=== PATIENT | female | born 1960 | race Caucasian/White ===

== ENCOUNTER 2017-07-26 20:13 | Observation (INO) | payer BC ==
[2017-07-26] MEDS ORDERED: Aspirin 81 MG Tab.Chew PO ONE (20:31)
--- NOTE | 2017-07-26 20:32 | EDM.PDOC ---
ED HPI GENERAL MEDICAL PROBLEM - General Chief Complaint: Chest Pain Stated Complaint: PT HAS CHEST PAINS Time Seen by Provider: 07/26/17 20:32 Source of Information: Reports: Patient - History of Present Illness INITIAL COMMENTS - FREE TEXT/NARRATIVE: HISTORY AND PHYSICAL: History of present illness: [Patient has been having some low-grade back pain over the last 24 hours to out of 10 yesterday improving somewhat yesterday evening today she developed 8 out of 10 chest tightness with a period of diaphoresis this lasted for approximately 20-30 minutes per patient and then improved she presents to the emergency room with recurring pain she describes as chest tightness to the left shoulder no diaphoresis at current no radiation into the arm neck or jaw No shortness of breath No fever nausea vomiting chills sweats no headache dizziness or palpitation no bowel or urine symptoms ] sugar receive 2 doses of nitroglycerin here in the emergency room with resolution of pain currently 0 out of 10 Review of systems: As per history of present illness and below otherwise all systems reviewed and negative. Past medical history: As per history of present illness and as reviewed below otherwise noncontributory. Surgical history: As per history of present illness and as reviewed below otherwise noncontributory. Social history: No reported history of drug or alcohol abuse. Family history: As per history of present illness and as reviewed below otherwise noncontributory. Physical exam: HEENT: Atraumatic, normocephalic, pupils reactive, negative for conjunctival pallor or scleral icterus, mucous membranes moist, throat clear, neck supple, nontender, trachea midline. Lungs: Clear to auscultation, breath sounds equal bilaterally, chest nontender. Heart: S1S2, regular, negative for clicks, rubs, or JVD. Abdomen: Soft, nondistended, nontender. Negative for masses or hepatosplenomegaly. Negative for costovertebral tenderness. Pelvis: Stable nontender. Genitourinary: Deferred. Rectal: Deferred. Extremities: Atraumatic, negative for cords or calf pain. Neurovascular unremarkable. Neuro: Awake, alert, oriented. Cranial nerves II through XII unremarkable. Cerebellum unremarkable. Motor and sensory unremarkable throughout. Exam nonfocal. Diagnostics: [CBC CMP UA troponin lipase EKG Chest 1 view ] Therapeutics: Aspirin 324 mg chewable Nitroglycerin sublingual 0.4 Morphine 2 mg IV Normal saline bolus Impression [Chest pain] Definitive disposition and diagnosis as appropriate pending reevaluation and review of above. 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: Musculoskeletal History: Reports: None Neurological History: Reports: None Psychiatric History: Reports: None Endocrine/Metabolic History: Reports: None Hematologic History: Reports: None Immunologic History: Reports: None Oncologic (Cancer) History: Reports: None Dermatologic History: Reports: None - Past Surgical History Female Surgical History: Reports: Section Musculoskeletal Surgical History: Reports: Carpal Tunnel - History Comment History Comment: etoh "1x a week" Social & Family History - Tobacco Use Smoking Status *Q: Never Smoker - Recreational Drug Use Recreational Drug Use: No Drug Use in Last 12 Months: No ED ROS GENERAL - Review of Systems Review Of Systems: ROS reveals no pertinent complaints other than HPI. ED EXAM, GENERAL - Physical Exam Exam: See Below Course - Vital Signs Last Recorded V/S: Last Vital Signs Temp 98.5 F 07/26/17 20:25 Pulse 63 07/26/17 21:58 Resp 18 07/26/17 21:58 BP 79/45 L 07/26/17 21:58 Pulse Ox 97 07/26/17 21:58 - Orders/Labs/Meds Orders: Active Orders 24 hr Category Date Time Status EKG 12 Lead [EKG Documentation Completion] [RC] STAT Care 07/26/17 20:25 Active EKG Documentation Completion [RC] STAT Care 07/26/17 20:31 Active Chest 1V Frontal [CR] Stat Exams 07/26/17 20:31 Taken UA W/MICROSCOPIC [URIN] Stat Lab 07/26/17 20:05 Ordered Nitroglycerin [Nitrostat] Med 07/26/17 21:24 Active 0.4 mg SL Q5M PRN Sodium Chloride 0.9% [Normal Saline] 1,000 ml Med 07/26/17 21:24 Active IV STAT Medication Orders Sodium Chloride (Normal Saline) 1,000 mls @ 999 mls/hr IV STAT ONE Stop: 07/26/17 22:24 Last Admin: 07/26/17 21:40 Dose: 999 mls/hr Nitroglycerin (Nitrostat) 0.4 mg SL Q5M PRN PRN Reason: Chest Pain Last Admin: 07/26/17 21:50 Dose: 0.4 mg Admin: 07/26/17 21:43 Dose: 0.4 mg Labs: Laboratory Tests 07/26/17 07/26/17 07/26/17 Range/Units 19:45 19:45 20:05 WBC 8.37 (4.0-11.0) K/uL RBC 4.32 (4.30-5.90) M/uL Hgb 13.8 (12.0-16.0) g/dL Hct 39.4 (36.0-46.0) % MCV 91.2 (80.0-98.0) fL MCH 31.9 (27.0-32.0) pg MCHC 35.0 (31.0-37.0) g/dL RDW Std Deviation 42.1 (28.0-62.0) fl RDW Coeff of Iesha 13 (11.0-15.0) % Plt Count 298 (150-400) K/uL MPV 8.60 (7.40-12.00) fL Neut % (Auto) 55.6 (48.0-80.0) % Lymph % (Auto) 34.8 (16.0-40.0) % [place] % (Auto) 8.6 (0.0-15.0) % Eos % (Auto) 0.6 (0.0-7.0) % Baso % (Auto) 0.4 (0.0-1.5) % Neut # (Auto) 4.7 (1.4-5.7) K/uL Lymph # (Auto) 2.9 H (0.6-2.4) K/uL [place] # (Auto) 0.7 (0.0-0.8) K/uL Eos # (Auto) 0.1 (0.0-0.7) K/uL Baso # (Auto) 0.0 (0.0-0.1) K/uL Nucleated RBC % 0.0 /100WBC Nucleated RBCs # 0 K/uL Sodium 137 (136-145) mmol/L Potassium 3.6 (3.5-5.1) mmol/L Chloride 101 (98-107) mmol/L Carbon Dioxide 29.8 (21.0-32.0) mmol/L BUN 16 (7.0-18.0) mg/dL Creatinine 0.7 (0.6-1.0) mg/dL Est Cr Clr Drug Dosing 74.23 mL/min Estimated GFR (MDRD) > 60.0 ml/min Glucose 121 H (74-106) mg/dL Calcium 9.2 (8.5-10.1) mg/dL Total Bilirubin 0.4 (0.2-1.0) mg/dL AST 18 (15-37) IU/L ALT 24 (14-63) IU/L Alkaline Phosphatase 66 (46-116) U/L Troponin I < 0.050 (0.000-0.056) ng/mL Total Protein 7.0 (6.4-8.2) g/dL Albumin 3.8 (3.4-5.0) g/dL Globulin 3.2 (2.0-3.5) g/dL Albumin/Globulin Ratio 1.2 L (1.3-2.8) Lipase 195 (73-393) U/L Urine Color YELLOW Urine Appearance CLEAR Urine pH 5.5 (5.0-8.0) Ur Specific [place] 1.020 (1.001-1.035) Urine Protein NEGATIVE (NEGATIVE) mg/dL Urine Glucose (UA) NEGATIVE (NEGATIVE) mg/dL Urine Ketones NEGATIVE (NEGATIVE) mg/dL Urine Occult Blood NEGATIVE (NEGATIVE) Urine Nitrite NEGATIVE (NEGATIVE) Urine Bilirubin NEGATIVE (NEGATIVE) Urine Urobilinogen 0.2 (<2.0) EU/dL Ur Leukocyte Esterase NEGATIVE (NEGATIVE) Urine RBC 0-1 (0-2/HPF) Urine WBC 1-3 (0-5/HPF) Ur Epithelial Cells OCCASIONAL (NONE-FEW) Urine Bacteria RARE (NEGATIVE) Meds: Medications Generic Name Dose Route Start Last Admin Trade Name Freq PRN Reason Stop Dose Admin Sodium Chloride 1,000 mls @ 999 mls/hr 07/26/17 21:24 07/26/17 21:40 Normal Saline IV 07/26/17 22:24 999 mls/hr STAT ONE Administration Nitroglycerin 0.4 mg 07/26/17 21:24 07/26/17 21:50 Nitrostat SL 0.4 mg Q5M PRN Administration Chest Pain Discontinued Medications Generic Name Dose Route Start Last Admin Trade Name Derrickq PRN Reason Stop Dose Admin Aspirin 324 mg 07/26/17 20:31 07/26/17 20:41 Aspirin PO 07/26/17 20:32 324 mg ONETIME ONE Administration Morphine Sulfate 2 mg 07/26/17 21:24 07/26/17 21:45 Morphine IVPUSH 07/26/17 21:25 2 mg ONETIME ONE Administration Nitroglycerin Confirm 07/26/17 21:33 07/26/17 21:43 Nitrostat Administered 07/26/17 21:34 Not Given Dose 0.4 mg .ROUTE .STK-MED ONE Departure - Departure Time of Disposition: 22:10 Disposition: Refer to Observation Condition: Fair Clinical Impression: Atypical chest pain - Discharge Information Referrals: PCP,None [Primary Care Provider] - Forms: ED Department Discharge - My Orders Last 24 Hours: My Active Orders 07/26/17 20:05 UA W/MICROSCOPIC [URIN] Stat 07/26/17 20:25 EKG 12 Lead [EKG Documentation Completion] [RC] STAT 07/26/17 20:31 EKG Documentation Completion [RC] STAT Chest 1V Frontal [CR] Stat 07/26/17 21:24 Nitroglycerin [Nitrostat] 0.4 mg SL Q5M PRN Sodium Chloride 0.9% [Normal Saline] 1,000 ml IV STAT - Assessment/Plan Last 24 Hours: My Active Orders 07/26/17 20:05 UA W/MICROSCOPIC [URIN] Stat 07/26/17 20:25 EKG 12 Lead [EKG Documentation Completion] [RC] STAT 07/26/17 20:31 EKG Documentation Completion [RC] STAT Chest 1V Frontal [CR] Stat 07/26/17 21:24 Nitroglycerin [Nitrostat] 0.4 mg SL Q5M PRN Sodium Chloride 0.9% [Normal Saline] 1,000 ml IV STAT
[2017-07-26 21:23] LABS: CHLORIDE,CL 101 mmol/L (98-107); SODIUM,NA 137 mmol/L (136-145)
[2017-07-26] MEDS ORDERED: Morphine 4 MG/ML Syringe IVPUSH ONE (21:24)
[2017-07-26] MEDS ORDERED: Sodium Chloride 0.9% 1,000 ML IV ONE (21:24)
[2017-07-26] MEDS ORDERED: Nitroglycerin 0.4 MG Tab.SL ONE (21:33)
[2017-07-26] MEDS: Nitroglycerin 0.4 MG Tab.SL SL PRN ×2 (21:43→21:50)
[2017-07-26] MEDS ORDERED: Morphine 4 MG/ML Syringe IVPUSH PRN (22:57)
[2017-07-26] MEDS ORDERED: Acetaminophen 325 MG Tab PO PRN (22:59)
[2017-07-27 08:33] VITALS: BP 121/73
[2017-07-27] MEDS ORDERED: Hydrochlorothiazide 25 MG Tab PO SCH (09:00)
[2017-07-27] MEDS ORDERED: Lisinopril 10 MG Tab PO SCH (09:00)
--- NOTE | 2017-07-27 09:29 | PCM.HP ---
H&P History of Present Illness - General Date of Service: 07/27/17 Admit Problem/Dx: Admission Diagnosis/Problem Admission Diagnosis/Problem Atypical chest pain Source of Information: Patient - History of Present Illness Initial Comments - Free Text/Narative: 56-year-old patient was admitted for observation for an ACS rule out. She states that she developed chest pain which she actually thinks his muscle spasms radiating from her back around the lateral aspect of her chest. Patient is on hypertensive medication lisinopril hydrochlorothiazide combination at a low dose. She does not have a history of chest pain, patient believes that this is actually musculoskeletal pain that is not improving. Patient states that she was taking care of her grandchild on Tuesday and had him for an extended period time and [employer] in her left arm and was feeding him in an awkward position throughout this time which resulted in increasing soreness that continued onto Tuesday, and by Tuesday she was having significant muscle spasms that brought her into the ER. Discharge Summary Date of admission: 07/27/2017 Date of discharge: 07/27/2017 Admitting diagnosis: #1. Anterior chest pain rule out ACS #2. #3. #4. #5. Discharge diagnoses: #1. Chest pain resolved, likely etiology was musculoskeletal pain/spasms; troponins negative 3 #2. Past medical history of hypertension #3. #4. #5. Consultations: None Procedures: None Hospitalization course: Patient was admitted for ACS rule out, she had troponins drawn that was negative 3. She stated that she was having muscle spasms, and when assessed in the a.m. after given a 5 mg immediate release dose of Flexeril the patient's musculoskeletal spasms had stopped. Patient at night did not have any chest pain that appeared to be ischemic in nature. She was afebrile, laboratories were all within normal limits. She was then subsequently discharged with instructions to follow-up with her PCP, patient was given a prescription for Flexeril 5 mg 3 times a day, as well as ibuprofen. Disposition on discharge: Home Condition on discharge: Stable Discharge medications: Continuation of home medication, Flexeril 5 mg 3 times a day, ibuprofen [id number] Follow-up instructions: Follow-up with PCP Onset of Symptoms: Reports: Sudden chest pain Pain Score (Numeric/FACES): 8 - Related Data Allergies/Adverse Reactions: Allergies Allergy/AdvReac Type Severity Reaction Status Date / Time No Known Allergies Allergy Verified 07/26/17 20:31 Home Medications: Home Meds Hydrochlorothiazide 1 tab PO DAILY 07/26/17 [History] Lisinopril 10 mg PO DAILY 07/26/17 [History] Cyclobenzaprine HCl 5 mg PO TID PRN 5 Days #15 tablet 07/27/17 [Rx] Past Medical History HEENT History: Reports: None Other HEENT History: wears glasses Cardiovascular History: Reports: None Respiratory History: Reports: None Gastrointestinal History: Reports: Colon Polyp Genitourinary History: Reports: None [employer] PROVIDER History: Reports: Musculoskeletal History: Reports: None Neurological History: Reports: None Psychiatric History: Reports: None Endocrine/Metabolic History: Reports: None Hematologic History: Reports: None Immunologic History: Reports: None Oncologic (Cancer) History: Reports: None Dermatologic History: Reports: None - Infectious Disease History Infectious Disease History: Reports: None - Past Surgical History Head Surgeries/Procedures: Reports: None Female Surgical History: Reports: Section Musculoskeletal Surgical History: Reports: Carpal Tunnel - History Comment History Comment: etoh "1x a week" Social & Family History - Family History Family Medical History: Noncontributory HEENT: Reports: None Cardiac: Reports: None Respiratory: Reports: None : Reports: None OBGYN: Reports: None Endocrine/Metabolic: Reports: None - Tobacco Use Smoking Status *Q: Never Smoker Second Hand Smoke Exposure: No - Caffeine Use Caffeine Use: Reports: Coffee - Alcohol Use Date of Last Drink: 07/23/17 Time of Last Drink: 20:00 - Recreational Drug Use Recreational Drug Use: No Drug Use in Last 12 Months: No H&P Review of Systems - Review of Systems: Review Of Systems: ROS reveals no pertinent complaints other than HPI. Exam - Exam Exam: See Below - Vital Signs Vital Signs: Last Vital Signs Temp 36.8 C 07/27/17 08:00 Pulse 85 07/27/17 08:00 Resp 16 07/27/17 08:00 BP 121/73 07/27/17 08:00 Pulse Ox 99 07/27/17 08:00 Weight: 70.352 kg - Exam General: Alert, Oriented, Cooperative, Mild Distress HEENT: Conjunctiva Clear Neck: Supple Lungs: Clear to Auscultation, Normal Respiratory Effort Cardiovascular: Regular Rate, Regular Rhythm GI/Abdominal Exam: Normal Bowel Sounds, Soft, Non-Tender, No Organomegaly Back Exam: Normal Inspection Extremities: Normal Inspection, Normal Range of Motion, Non-Tender, No Pedal Edema - Patient Data Lab Results Last 24 hrs: Laboratory Results - last 24 hr 07/26/17 07/26/17 07/26/17 Range/Units 19:45 19:45 20:05 WBC 8.37 (4.0-11.0) K/uL RBC 4.32 (4.30-5.90) M/uL Hgb 13.8 (12.0-16.0) g/dL Hct 39.4 (36.0-46.0) % MCV 91.2 (80.0-98.0) fL MCH 31.9 (27.0-32.0) pg MCHC 35.0 (31.0-37.0) g/dL RDW Std Deviation 42.1 (28.0-62.0) fl RDW Coeff of Iesha 13 (11.0-15.0) % Plt Count 298 (150-400) K/uL MPV 8.60 (7.40-12.00) fL Neut % (Auto) 55.6 (48.0-80.0) % Lymph % (Auto) 34.8 (16.0-40.0) % [place] % (Auto) 8.6 (0.0-15.0) % Eos % (Auto) 0.6 (0.0-7.0) % Baso % (Auto) 0.4 (0.0-1.5) % Neut # (Auto) 4.7 (1.4-5.7) K/uL Lymph # (Auto) 2.9 H (0.6-2.4) K/uL [place] # (Auto) 0.7 (0.0-0.8) K/uL Eos # (Auto) 0.1 (0.0-0.7) K/uL Baso # (Auto) 0.0 (0.0-0.1) K/uL Nucleated RBC % 0.0 /100WBC Nucleated RBCs # 0 K/uL Sodium 137 (136-145) mmol/L Potassium 3.6 (3.5-5.1) mmol/L Chloride 101 (98-107) mmol/L Carbon Dioxide 29.8 (21.0-32.0) mmol/L BUN 16 (7.0-18.0) mg/dL Creatinine 0.7 (0.6-1.0) mg/dL Est Cr Clr Drug Dosing 74.23 mL/min Estimated GFR (MDRD) > 60.0 ml/min Glucose 121 H (74-106) mg/dL Calcium 9.2 (8.5-10.1) mg/dL Total Bilirubin 0.4 (0.2-1.0) mg/dL AST 18 (15-37) IU/L ALT 24 (14-63) IU/L Alkaline Phosphatase 66 (46-116) U/L Troponin I < 0.050 (0.000-0.056) ng/mL Total Protein 7.0 (6.4-8.2) g/dL Albumin 3.8 (3.4-5.0) g/dL Globulin 3.2 (2.0-3.5) g/dL Albumin/Globulin Ratio 1.2 L (1.3-2.8) Lipase 195 (73-393) U/L Urine Color YELLOW Urine Appearance CLEAR Urine pH 5.5 (5.0-8.0) Ur Specific [place] 1.020 (1.001-1.035) Urine Protein NEGATIVE (NEGATIVE) mg/dL Urine Glucose (UA) NEGATIVE (NEGATIVE) mg/dL Urine Ketones NEGATIVE (NEGATIVE) mg/dL Urine Occult Blood NEGATIVE (NEGATIVE) Urine Nitrite NEGATIVE (NEGATIVE) Urine Bilirubin NEGATIVE (NEGATIVE) Urine Urobilinogen 0.2 (<2.0) EU/dL Ur Leukocyte Esterase NEGATIVE (NEGATIVE) Urine RBC 0-1 (0-2/HPF) Urine WBC 1-3 (0-5/HPF) Ur Epithelial Cells OCCASIONAL (NONE-FEW) Urine Bacteria RARE (NEGATIVE) 07/27/17 07/27/17 Range/Units 01:50 07:43 WBC (4.0-11.0) K/uL RBC (4.30-5.90) M/uL Hgb (12.0-16.0) g/dL Hct (36.0-46.0) % MCV (80.0-98.0) fL MCH (27.0-32.0) pg MCHC (31.0-37.0) g/dL RDW Std Deviation (28.0-62.0) fl RDW Coeff of Iesha (11.0-15.0) % Plt Count (150-400) K/uL MPV (7.40-12.00) fL Neut % (Auto) (48.0-80.0) % Lymph % (Auto) (16.0-40.0) % [place] % (Auto) (0.0-15.0) % Eos % (Auto) (0.0-7.0) % Baso % (Auto) (0.0-1.5) % Neut # (Auto) (1.4-5.7) K/uL Lymph # (Auto) (0.6-2.4) K/uL [place] # (Auto) (0.0-0.8) K/uL Eos # (Auto) (0.0-0.7) K/uL Baso # (Auto) (0.0-0.1) K/uL Nucleated RBC % /100WBC Nucleated RBCs # K/uL Sodium (136-145) mmol/L Potassium (3.5-5.1) mmol/L Chloride (98-107) mmol/L Carbon Dioxide (21.0-32.0) mmol/L BUN (7.0-18.0) mg/dL Creatinine (0.6-1.0) mg/dL Est Cr Clr Drug Dosing mL/min Estimated GFR (MDRD) ml/min Glucose (74-106) mg/dL Calcium (8.5-10.1) mg/dL Total Bilirubin (0.2-1.0) mg/dL AST (15-37) IU/L ALT (14-63) IU/L Alkaline Phosphatase (46-116) U/L Troponin I < 0.050 < 0.050 (0.000-0.056) ng/mL Total Protein (6.4-8.2) g/dL Albumin (3.4-5.0) g/dL Globulin (2.0-3.5) g/dL Albumin/Globulin Ratio (1.3-2.8) Lipase (73-393) U/L Urine Color Urine Appearance Urine pH (5.0-8.0) Ur Specific [place] (1.001-1.035) Urine Protein (NEGATIVE) mg/dL Urine Glucose (UA) (NEGATIVE) mg/dL Urine Ketones (NEGATIVE) mg/dL Urine Occult Blood (NEGATIVE) Urine Nitrite (NEGATIVE) Urine Bilirubin (NEGATIVE) Urine Urobilinogen (<2.0) EU/dL Ur Leukocyte Esterase (NEGATIVE) Urine RBC (0-2/HPF) Urine WBC (0-5/HPF) Ur Epithelial Cells (NONE-FEW) Urine Bacteria (NEGATIVE) Result Diagrams: 07/27/17 07:43 07/27/17 07:43 Problem List Initiated/Reviewed/Updated: Yes Orders Last 24hrs: Active Orders 24 hr Category Date Time Status Admission Status [Patient Status] [ADT] Stat ADT 07/26/17 22:10 Active EKG 12 Lead [EKG Documentation Completion] [RC] STAT Care 07/26/17 20:25 Active EKG Documentation Completion [RC] STAT Care 07/26/17 20:31 Active Telemetry Monitoring [Cardiac Monitoring] [RC] Q8H Care 07/26/17 22:56 Active Heart Healthy Diet [DIET] Diet 07/27/17 Breakfast Active Chest 1V Frontal [CR] Stat Exams 07/26/17 20:31 Taken UA W/MICROSCOPIC [URIN] Stat Lab 07/26/17 20:05 Ordered Acetaminophen [Tylenol] Med 07/26/17 22:59 Active 650 mg PO Q4H PRN Hydrochlorothiazide Med 07/27/17 09:00 Active 25 mg PO DAILY Lisinopril [Prinivil] Med 07/27/17 09:00 Active 10 mg PO DAILY Morphine Med 07/26/17 22:57 Active 2 mg IVPUSH Q4H PRN Nitroglycerin [Nitrostat] Med 07/26/17 21:24 Active 0.4 mg SL Q5M PRN Medication Orders Acetaminophen (Tylenol) 650 mg PO Q4H PRN PRN Reason: Pain Hydrochlorothiazide (Hydrochlorothiazide) 25 mg PO DAILY HIMANSHU Lisinopril (Prinivil) 10 mg PO DAILY HIMANSHU Morphine Sulfate (Morphine) 2 mg IVPUSH Q4H PRN PRN Reason: Pain Last Admin: 07/27/17 06:26 Dose: 2 mg Nitroglycerin (Nitrostat) 0.4 mg SL Q5M PRN PRN Reason: Chest Pain Last Admin: 07/26/17 21:50 Dose: 0.4 mg Admin: 07/26/17 21:43 Dose: 0.4 mg Assessment/Plan Comment:: 56-year-old female admitted under observation for acute coronary syndrome rule out secondary to acute chest pain. Troponins 3, CBC CMP, EKG. Admitted under observation anticipated discharge in a.m. provided troponins are negative 3, pain is under control.
--- NOTE | 2017-07-27 09:47 | CR ---
EXAM DATE: 07/26/17 PATIENT'S AGE: 56 Patient: XIMENA GARCIA Facility: [place], [place] Site . Site : [id number] Study: XRay Chest [id number] 9:05:03 PM Ordering Physician: Meggan Caruso Final Report: Indication: Pain mid left chest. Feels like spasm or pulled muscle. Findings: PA chest radiograph demonstrates cardiac silhouette at the upper normal. Pulmonary vasculature is cephalization. There is small amount of linear density at the left base. No lobar consolidation, pleural effusion or pneumothorax is seen. Bony structures are within demonstrated. Impression: 1. Small amount of linear atelectasis or scarring at the left base. 2. Otherwise no acute cardiopulmonary disease. Dictated by Pam Medina MD @ 07/26/2017 9:10:51 PM Dictated by: Pam Medina MD @ 07/26/2017 21:10:56 (Electronic Signature) Report Signed by Proxy. GUTH[facility] MED[facility] CENTERRizwan
[2017-07-27 09:56] LABS: CHLORIDE,CL 101 mmol/L (98-107); SODIUM,NA 136 mmol/L (136-145)
[2017-07-27] MEDS ORDERED: Ibuprofen 400 MG Tab PO ONE (10:14)
[2017-07-27] MEDS ORDERED: Cyclobenzaprine 5 MG Tab PO SCH (10:15)
== END 2017-07-27 11:15 | disposition home or self-care (01) ==
LOC: MW.ED 20:13 → MW.MS 22:10
PROVIDERS: ADMIT Internal Medicine; ATTEND Internal Medicine
DX: R07.89 Other chest pain (principal); I10 Essential (primary) hypertension; Z79.899 Other long term (current) drug therapy
CPT/HCPCS: 36415; 71045; 80048; 80053; 81001; 83690; 84484; 85025; 93005; 96361; 96374; 96376; 99285; A9270; G0378; J2270; J7040; 99283

== ENCOUNTER 2023-03-20 15:41 | Observation (INO) | payer BC ==
[2023-03-20] MEDS ORDERED: Ondansetron 4 MG/2 ML SDV IVPUSH ONE (16:03)
[2023-03-20] MEDS ORDERED: Sodium Chloride 0.9% 1,000 ML IV ONE ×2 (16:03→17:17)
[2023-03-20 16:39] LABS: BASOPHILS ABSOLUTE AUTO 0.03 K/uL (0.00-0.20); BASOPHILS PERCENT AUTO 0.3 % (0.0-1.0); HEMATOCRIT 40.2 % (37.0-47.0); HEMOGLOBIN 13.4 g/dL (12.0-16.0); IMMATURE GRAN ABSOLUTE AUTO 0.04 K/uL (0.00-0.05); IMMATURE GRAN PERCENT AUTO 0.4 % (0.0-0.4); LYMPHOCYTES ABSOLUTE AUTO 0.79 K/uL (1.00-4.80); LYMPHOCYTES PERCENT AUTO 7.2 % (24.0-44.0); MEAN CORPUSCULAR HEMOGLOBIN 26.5 pg (28.0-32.0); MEAN CORPUSCULAR HGB CONC 33.3 g/dL (32.0-36.0); MEAN CORPUSCULAR VOLUME 79.6 fL (83.0-99.0); MEAN PLATELET VOLUME 8.4 fL (9.4-12.3); MONOCYTES PERCENT AUTO 7.3 % (0.0-8.0); NEUTROPHILS ABSOLUTE AUTO 9.28 K/uL (1.80-7.70); NEUTROPHILS PERCENT AUTO 84.8 % (41.0-71.0); PLATELET COUNT,PLT 357 K/uL (150-400); RED BLOOD CELL COUNT 5.05 M/uL (4.10-5.30); WHITE BLOOD CELL COUNT,WBC 10.94 K/uL (3.9-11.3)
[2023-03-20 17:05] LABS: ALBUMIN 4.3 g/dL (3.4-5.0); BILIRUBIN TOTAL 0.4 mg/dL (0.2-1.0); CALCIUM 9.1 mg/dL (8.5-10.1); CARBON DIOXIDE,CO2 22.9 mmol/L (21.0-32.0); CREATININE 2.2 mg/dL (0.6-1.0); EST CRCL DRUG DOSING (CG) 21.93 mL/min; POTASSIUM,K 2.9 mmol/L (3.5-5.1); PROTEIN TOTAL,TP 8.4 g/dL (6.4-8.2)
[2023-03-20 17:08] LABS: A/G RATIO 1.1 (0.9-1.6)
[2023-03-20 17:20] LABS: CORONAVIRUS COVID-19 NAA POSITIVE (NEGATIVE); INFLUENZA A NAA NEGATIVE (NEGATIVE); INFLUENZA B NAA NEGATIVE (NEGATIVE); RESPIRATORY SYNCYTIAL VIR NAA NEGATIVE (NEGATIVE)
[2023-03-20] MEDS ORDERED: Loperamide 2 MG Cap PO PRN (17:58)
[2023-03-20] MEDS: Potassium Chloride 100 ML IV SCH ×2 (17:59→20:40)
[2023-03-20 18:22] LABS: BILIRUBIN,URINE NEGATIVE (NEGATIVE); COLOR,URINE YELLOW; GLUCOSE,URINE NEGATIVE (NEGATIVE); KETONES,URINE TRACE mg/dL (NEGATIVE); LEUKOCYTE ESTERASE,URINE NEGATIVE (NEGATIVE); NITRITE,URINE NEGATIVE (NEGATIVE); OCCULT BLOOD,URINE TRACE-INTACT (NEGATIVE); PH,URINE 5.5 (5.0-8.0); PROTEIN,URINE NEGATIVE (NEGATIVE); UROBILINOGEN,URINE 0.2 EU/dL (<2.0)
[2023-03-20 18:49] LABS: APPEARANCE,URINE HAZY
[2023-03-20 19:00] LABS: RBC,URINE 0-2 (0-2/HPF); WBC,URINE 0-5 (0-5/HPF)
[2023-03-20 19:01] LABS: BACTERIA,URINE 1+ (NEGATIVE); CALCIUM OXALATE CRYSTALS,URINE FEW (NEGATIVE); EPITHELIAL CELLS,URINE FEW (NONE-FEW); HYALINE CASTS,URINE 0-3 (0-2/LPF)
[2023-03-20 19:02] LABS: MUCUS,URINE MODERATE (NONE-MOD)
[2023-03-20] MEDS ORDERED: Omeprazole 20 MG Cap.CR PO SCH (21:00)
[2023-03-20] MEDS: Lactated Ringers 1,000 ML IV SCH (23:55)
[2023-03-20] MEDS ORDERED: Ondansetron 4 MG/2 ML SDV IVPUSH PRN (23:59)
[2023-03-21 05:50] LABS: BASOPHILS ABSOLUTE AUTO 0.01 K/uL (0.00-0.20); BASOPHILS PERCENT AUTO 0.2 % (0.0-1.0); HEMATOCRIT 32.3 % (37.0-47.0); HEMOGLOBIN 10.9 g/dL (12.0-16.0); IMMATURE GRAN ABSOLUTE AUTO 0.01 K/uL (0.00-0.05); IMMATURE GRAN PERCENT AUTO 0.2 % (0.0-0.4); LYMPHOCYTES ABSOLUTE AUTO 1.02 K/uL (1.00-4.80); LYMPHOCYTES PERCENT AUTO 18.6 % (24.0-44.0); MEAN CORPUSCULAR HEMOGLOBIN 26.9 pg (28.0-32.0); MEAN CORPUSCULAR HGB CONC 33.7 g/dL (32.0-36.0); MEAN CORPUSCULAR VOLUME 79.8 fL (83.0-99.0); MEAN PLATELET VOLUME 8.6 fL (9.4-12.3); MONOCYTES ABSOLUTE AUTO 0.55 K/uL (0.00-0.80); NEUTROPHILS ABSOLUTE AUTO 3.89 K/uL (1.80-7.70); PLATELET COUNT,PLT 292 K/uL (150-400); RED BLOOD CELL COUNT 4.05 M/uL (4.10-5.30); WHITE BLOOD CELL COUNT,WBC 5.48 K/uL (3.9-11.3)
[2023-03-21 06:38] LABS: ALBUMIN 3.1 g/dL (3.4-5.0); BILIRUBIN TOTAL 0.3 mg/dL (0.2-1.0); CALCIUM 8.4 mg/dL (8.5-10.1); CARBON DIOXIDE,CO2 25.3 mmol/L (21.0-32.0); EST CRCL DRUG DOSING (CG) 48.25 mL/min; POTASSIUM,K 3.4 mmol/L (3.5-5.1); PROTEIN TOTAL,TP 6.3 g/dL (6.4-8.2)
[2023-03-21] MEDS ORDERED: Potassium Chloride 20 MEQ Tab.ER PO ONE (07:02)
[2023-03-21] MEDS: Lactated Ringers 1,000 ML IV SCH (09:46)
[2023-03-21 14:32] VITALS: BP 145/71; PULSE 91
== END 2023-03-21 15:35 | disposition home or self-care (01) ==
LOC: MW.ED 15:41 → MW.MS 17:28
PROVIDERS: ADMIT Family Medicine; ATTEND Family Medicine
DX: U07.1 COVID-19 (principal); K52.9 Noninfective gastroenteritis and colitis, unspecified; N28.9 Disorder of kidney and ureter, unspecified; I10 Essential (primary) hypertension; E87.6 Hypokalemia; E78.00 Pure hypercholesterolemia, unspecified; K21.9 Gastro-esophageal reflux disease without esophagitis; Z79.899 Other long term (current) drug therapy
CPT/HCPCS: 0241U; 36415; 70450; 80053; 81001; 82947; 83690; 83735; 84443; 84484; 85025; 87324; 93005; A9270; J2405; J3480; J7030; J7120; 93010; 96361; 96365; 96375; 99284; 99285-25

== ENCOUNTER 2024-05-10 07:30 | Day surgery (SDC) | payer BC ==
[~2024-05-10 07:30] MED LIST: Sodium Chloride 0.9% 10 ML Syringe FLUSH PRN; Sodium Chloride 0.9% 2.5 ML Syringe FLUSH PRN; Sodium Chloride 0.9% 20 ML SDV IV PRN
[2024-05-10] MEDS ORDERED: propofoL 500 MG/50 ML 50 ML ONE (08:05)
[2024-05-10] MEDS: Lactated Ringers 1,000 ML IV SCH (08:09)
[2024-05-10 11:14] VITALS: BP 152/82; PULSE 89
== END 2024-05-10 10:30 | disposition home or self-care (01) ==
LOC: MW.SDS 07:30
PROVIDERS: ATTEND Surgery
DX: Z12.11 Encounter for screening for malignant neoplasm of colon (principal); K51.40 Inflammatory polyps of colon without complications; K57.30 Diverticulosis of large intestine without perforation or abscess without bleeding; R19.5 Other fecal abnormalities; K21.9 Gastro-esophageal reflux disease without esophagitis; I10 Essential (primary) hypertension; Z79.899 Other long term (current) drug therapy; Z87.891 Personal history of nicotine dependence
CPT/HCPCS: 45380; J2704; J7120; 00811